=== PATIENT | female | born 1940 | race Caucasian/White ===

== ENCOUNTER → 2016-05-05 | Outpatient (CLI) | payer MEDICARE, OTHER ==
--- NOTE | 2016-05-07 19:12 | Diagnostic Imaging Report ---
Bilateral screening mammogram The current study was also evaluated with a Computer Aided Detection (CAD) system. Indication: Screening. No current complaints stated on the questionnaire. COMPARISON: 04/23/15. FINDINGS: The breasts are composed of scattered fibroglandular densities. There are scattered benign-appearing calcifications. Allowing for technique and positional differences, no suspicious change is seen. IMPRESSION: No significant change. ACR BI-RADS Category 2: Benign findings. Result letter will be mailed to the patient. Note: At least 10% of breast cancer is not imaged by mammography. Dictated by: Dictated on workstation # [id number]
== END ==
LOC: RAD 12:33
PROVIDERS: ATTEND Nurse Practitioner
DX: Z12.31 Encounter for screening mammogram for malignant neoplasm of breast (principal)
CPT/HCPCS: 77067

== ENCOUNTER 2016-10-08 11:06 | Outpatient (RCR) | payer MEDICARE, OTHER | END 2016-11-06 16:38 | disposition home or self-care (01) | PROVIDERS: ATTEND Family Medicine | DX: M51.36 Other intervertebral disc degeneration, lumbar region (principal) ==

== ENCOUNTER → 2017-05-07 | Outpatient (CLI) | payer MEDICARE, OTHER ==
--- NOTE | 2017-05-07 12:39 | Diagnostic Imaging Report ---
INDICATION: Routine screening. The current study was also evaluated with a Computer Aided Detection (CAD) system. COMPARISON is made with prior study from 05/05/2016 and 04/23/2015. FINDINGS: Scattered fibroglandular densities are identified bilaterally. A density in the inferior right breast may represent a skin mole. No spiculated mass or malignant appearing microcalcifications are seen. There are benign calcifications present. The axillae are unremarkable. IMPRESSION: BI-RADS category 2. No mammographic features suspicious for malignancy are identified. ACR BI-RADS Category 2: Benign findings. Result letter will be mailed to the patient. Note: At least 10% of breast cancer is not imaged by mammography. Dictated by: Dictated on workstation # [id number]
== END ==
LOC: RAD 10:49
PROVIDERS: ATTEND Family Medicine
DX: Z12.31 Encounter for screening mammogram for malignant neoplasm of breast (principal)
CPT/HCPCS: 77067

== ENCOUNTER → 2018-06-06 | Outpatient (CLI) | payer MEDICARE, OTHER ==
--- NOTE | 2018-06-06 12:16 | Diagnostic Imaging Report ---
INDICATION: Screening The current study was also evaluated with a Computer Aided Detection (CAD) system. 3-D Tomographic imaging was also performed. FINDINGS: Comparison made with prior examination from 05/07/2017, 05/05/2016 and 04/23/15. There are scattered fibroglandular densities bilaterally. There are a few benign type calcifications. There is no dominant mass, spiculated lesion or suspicious calcification identified. Skin, nipples and axilla are unremarkable. IMPRESSION: Category 2 benign. ACR BI-RADS Category 2: Benign findings. Result letter will be mailed to the patient. Note: At least 10% of breast cancer is not imaged by mammography. Dictated by: Dictated on workstation # [id number]
== END ==
LOC: RAD 10:49
PROVIDERS: ATTEND Family Medicine
DX: Z12.31 Encounter for screening mammogram for malignant neoplasm of breast (principal)
CPT/HCPCS: 77067

== ENCOUNTER → 2020-08-05 | Outpatient (CLI) | payer MEDICARE, OTHER ==
[~2020-08-05] MED LIST: CATHETER FLUSH 10 ML SYR IV PRN; HOLD METFORMIN - RECEIVED CONTRAST 20 ML VIAL IV SCH; IOHEXOL 350 MG/ML 100 ML (OMNIPAQUE 350) VIAL IV ONE; NS 100 ML (IVPB) BAG IV ONE
--- NOTE | 2020-08-05 16:48 | Diagnostic Imaging Report ---
PROCEDURE: US carotid duplex bilateral. TECHNIQUE: Multiple Real-time grayscale images were obtained over the carotid arteries in various projections bilaterally. Additional spectral analysis and color Doppler duplex images were also obtained. INDICATION: Hypertension. Dizziness. Carotid artery disease. FINDINGS: There is calcified and noncalcified plaque at the carotid bifurcations bilaterally with the maximal stenosis estimated at less than 50%. There is no significant vessel irregularity seen. There is antegrade flow in all vessels. IMPRESSION: There is moderate disease of the carotid bifurcations with no high-grade stenoses identified. Parameters based on the consensus panel Alcocer-Scale and Doppler ultrasound criteria published December 2002, Radiology, Volume 229. DOPPLER (peak systolic velocity M/S Right Left CCA 0.90 1.07 ICA Proximal 0.82 1.39 ICA Mid 0.89 0.93 ICA Distal 0.63 1.08 RATIO 1.0 1.3 ECA 1.28 1.39 VERT 0.68 0.61 Dictated by: Dictated on workstation # [id number]
--- NOTE | 2020-08-05 17:22 | Diagnostic Imaging Report ---
PROCEDURE: CT angiography of the head with and without contrast. TECHNIQUE: Noncontrast CT of the head was obtained. Subsequently, after intravenous administration of contrast, thin section axial CT angiography of the head was performed. Source data was reformatted into multiple MIP reformats. Delayed postcontrast acquisition of the head was also acquired. Auto Exposure Controls were utilized during the CT exam to meet ALARA standards for radiation dose reduction. INDICATION: Retinal artery occlusion with carotid bruit and hypertension. The visualized distal internal carotid arteries are widely patent. There is mild to moderate atherosclerotic calcification along the cavernous portions of the internal carotid arteries along the expected origins of ophthalmic arteries. Ophthalmic arteries are patent within the retrobulbar or orbits, bilaterally. Anterior, middle and posterior cerebral arteries are also patent without evidence of aneurysm or vascular malformation. No stenosis is seen. There is dominance of the left vertebral artery with right vertebral artery terminating at the level of PICA. Note is made of mild mural thickening within the right sphenoid sinus IMPRESSION: Dominant left vertebral artery with PICA termination of the distal right vertebral artery. There is cavernous carotid atherosclerotic calcification however no stenosis, occlusion or filling defect is seen. Dictated by: Dictated on workstation # [id number]
--- NOTE | 2020-08-05 17:30 | Diagnostic Imaging Report ---
PROCEDURE: US Renal Bilateral. TECHNIQUE: Multiple real-time grayscale images were obtained over the kidneys in various projections bilaterally. INDICATION: Renal insufficiency. FINDINGS: The right kidney measures 8.6 x 3.6 x 4.6 cm. The left kidney measures 8.2 x 3.7 x 3.6 cm. No hydronephrosis. Bladder appears normal with bilateral ureteral jets. IMPRESSION: No evidence of obstructive uropathy. Normal-appearing kidneys. Dictated by: Dictated on workstation # [id number]
== END ==
LOC: CARD 11:00
PROVIDERS: ATTEND Family Medicine
DX: H34.9 Unspecified retinal vascular occlusion (principal); I10 Essential (primary) hypertension; I65.29 Occlusion and stenosis of unspecified carotid artery; I25.10 Atherosclerotic heart disease of native coronary artery without angina pectoris; I65.23 Occlusion and stenosis of bilateral carotid arteries
CPT/HCPCS: 70496; 76770; 93306; 93880